=== PATIENT | male | born 1960 | race Caucasian/White ===

== ENCOUNTER 2021-05-04 08:24 | Emergency (ER) | payer OTHER ==
[~2021-05-04] VITALS: Ht 172.7 cm; Wt 75.4 kg
--- NOTE | 2021-05-04 08:38 | NUR ---
PT AMBULATORY TO ROOM FROM TRIAGE, PT CHANGED INTO GOWN. MONITORS IN PLACE. CALL LIGHT WITHIN REACH. AT BS
[2021-05-04 09:08] LABS: BASOPHILS % (AUTO) 1 % (0-1); EOSINOPHILS % (AUTO) 1 % (1-7); LYMPHOCYTES % (AUTO) 26 % (22-44); MEAN CORPUSCULAR HEMOGLOBIN 34.5 pg (27.5-34.5); MEAN PLATELET VOLUME 7.7 fL (7.4-10.4); MONOCYTES % (AUTO) 12 % (2-9); NEUTROPHILS % (AUTO) 60 % (42-75); PLATELET COUNT 201 x10^3/uL (130-400); RED BLOOD COUNT 4.39 x10^6/uL (4.38-5.82); RED CELL DISTRIBUTION WIDTH 12.3 % (9.4-14.8)
--- NOTE | 2021-05-04 09:16 | NUR ---
PT TO CT
[2021-05-04 09:17] LABS: ALANINE AMINOTRANSFERASE 23 U/L (12-78); ALBUMIN 3.5 g/dL (3.4-5.0); ANION GAP 8 mmol/L (5-15); CALCIUM 8.9 mg/dL (8.5-10.1); CHLORIDE 107 mmol/L (98-107)
[2021-05-04 09:19] LABS: ALKALINE PHOSPHATASE 47 U/L (45-117); BILIRUBIN,TOTAL 0.8 mg/dL (0.2-1.0)
--- NOTE | 2021-05-04 09:25 | NUR ---
PT BACK FROM CT, CONNECTED TO MONITORS. AT BS
--- NOTE | 2021-05-04 09:32 | NUR ---
PT LAYING ON DARREN PAYAN/MARI. AT BS. CALL LIGHT WITHIN REACH. NO NEEDS AT THIS TIME
[2021-05-04 09:34] LABS: MICROSCOPIC AUTO
[2021-05-04] MEDS ORDERED: KETOROLAC 30 MG/1 ML ONE (10:20)
[2021-05-04] MEDS ORDERED: ONDANSETRON ODT 4 MG ONE (10:20)
[2021-05-04] MEDS ORDERED: KETOROLAC 60 MG/2 ML ONE (10:24)
[2021-05-04] MEDS ORDERED: KETOROLAC 30 MG/1 ML IM ONE (10:30)
[2021-05-04] MEDS ORDERED: ONDANSETRON ODT 4 MG PO ONE (10:30)
[2021-05-04 10:57] VITALS: BP 131/67
--- NOTE | 2021-05-04 11:25 | NUR ---
Patient given discharge instructions and RX, they have confirmed that they understand the instructions. Patient ambulatory with steady gait.
== END 2021-05-04 11:27 | disposition home or self-care (01) ==
LOC: ED 09:28
DX: N13.2 Hydronephrosis with renal and ureteral calculous obstruction (principal); R11.0 Nausea; R94.31 Abnormal electrocardiogram [ECG] [EKG]
CPT/HCPCS: 36415; 74176; 80053; 81001; 83690; 85025; 87086; 93005; 99285; Q0162